=== PATIENT | female | born 1985 | race Caucasian/White ===

== ENCOUNTER 2016-11-15 20:45 | Emergency (ER) | payer OTHER ==
[~2016-11-15] VITALS: Ht 160 cm; Wt 87.0 kg
[~2016-11-15 20:45] MED LIST: FERR1POW4 MC; PREN1TAB49 PO; [UNRECOGNIZED DRUG - CODE] PO
[2016-11-15 21:19] VITALS: Ht 160 cm; Wt 87.0 kg
[2016-11-15] MEDS ORDERED: ONDANSETRON 4 MG INJ IV STA (22:09)
[2016-11-15] MEDS ORDERED: morphine 4 MG/ML VIAL IV STA (22:09)
[2016-11-15] MEDS ORDERED: SOD CHLORIDE 0.9% 1,000 ML IV STA (22:09)
--- NOTE | 2016-11-15 22:21 | ERD ---
ER Documentation Chief Complaint Date/Time DATE: 11/15/16 TIME: 22:20 Chief Complaint Left lower quadrant abdominal pain started today HPI 31-year-old female presents here in emergency department for complaints of left lower quadrant abdominal pain started today. Patient describes the pain as sharp pain, 9/10 scale, is accompanied with dysuria. Patient also has been having hematuria. Patient denies any fever or chills. Patient denies any nausea vomiting. Patient denies any diarrhea or constipation. Patient denies any sick contacts. Patient did not take any medications for pain. ROS All systems reviewed and are negative except as per history of present illness. Medications Home Meds Active Scripts Ciprofloxacin Hcl* (Ciprofloxacin Hcl*) 500 Mg Tablet, 500 MG PO BID for 10 Days , TAB Prov:JUN MCKAY BIOLOGICAL AIDE 11/16/16 Tamsulosin Hcl* (Flomax*) 0.4 Mg Cap.er.24h, 0.4 MG PO QPM, #30 CAP Prov:JUN MCKAY NP 11/16/16 Phenazopyridine Hcl* (Pyridium*) 200 Mg Tab, 200 MG PO TID Y for URINARY PAIN, # 6 TAB Prov:JUN MCKAY BIOLOGICAL AIDE 11/16/16 Hydrocodone/Acetaminophen ([place] 10-325 Tablet) 1 Each Tablet, 1 TAB PO Q6H for SEVERE PAIN LEVEL 7-10, #20 TAB Prov:JUN MCKAY BIOLOGICAL AIDE 11/16/16 Reported Medications Ferrous Sulfate (Ferrous Sulfate) 1 Gm Powder, 1 GM MC d 06/26/11 Vit/Fe Fumarate/Fa/Se ( Mtr Tablet) 1 Tab Tablet, 1 TAB PO d 06/26/11 Vits W-Ca,Fe,Fa(<1MG) () 1 Tab Tablet, 1 TAB PO d 06/26/11 Allergies Allergies: Coded Allergies: No Known Allergy (Verified Allergy, 06/26/11) PMhx/Soc Medical and Surgical Hx: pt denies Medical Hx, pt denies Surgical Hx Hx Alcohol Use: No Hx Substance Use: No Hx Tobacco Use: No FmHx Family History: No coronary disease, No diabetes, No other Physical Exam Vitals Vital Signs Date Time Temp Pulse Resp B/P Pulse Ox O2 Delivery O2 Flow Rate FiO2 11/15/16 21:19 98.0 71 20 105/70 100 Physical Exam GENERAL: The patient is well developed and appropriate for usual state of health, in no apparent distress. CHEST: Clear to auscultation bilaterally. There are no rales, wheezes or rhonchi. HEART: Regular rate and rhythm. No murmurs, clicks, rubs or gallops. No S3 or S4. ABDOMEN: Soft, tenderness on palpation on left lower quadrant. Good bowel sounds. No rebound or guarding. No gross peritonitis. No gross organomegaly or masses. No Sousa sign or McBurney point tenderness. BACK: No midline or flank tenderness. EXTREMITIES: Equal pulses bilaterally. There is no peripheral clubbing, cyanosis or edema. No focal swelling or erythema. Full range of motion. Grossly neurovascularly intact. NEURO: Alert and oriented. Cranial nerves 2-12 intact. Motor strength in all 4 extremities with 5/5 strength. Sensation grossly intact. Normal speech and gait. SKIN: There is no apparent rash or petechia. The skin is warm and dry. HEMATOLOGIC AND LYMPHATIC: There is no evidence of excessive bruising or lymphedema. No gross cervical, axillary, or inguinal lymphadenopathy. Result Diagram: 11/15/16219911/15/162199 Results 24 hrs Laboratory Tests Test 11/15/16 22:00 Alanine Aminotransferase (ALT/SGPT) 23IU/L Albumin 4.2g/dl Albumin/Globulin Ratio 1.16 Alkaline Phosphatase 118IU/L Anion Gap 24 Aspartate Amino Transf (AST/SGOT) 19IU/L Basophils # 0.010^3/ul Basophils % 0.1% Blood Morphology Comment Blood Urea Nitrogen 10mg/dl Calcium Level 9.2mg/dl Carbon Dioxide Level 23mmol/L Chloride Level 104mmol/L Creatinine 0.64mg/dl Direct Bilirubin 0.00mg/dl Eosinophils # 0.010^3/ul Eosinophils % 0.1% Globulin 3.60g/dl Glucose Level 140mg/dl Hematocrit 38.9% Hemoglobin 12.8g/dl Indirect Bilirubin 0.0mg/dl Lipase 78U/L Lymphocytes # 1.810^3/ul Lymphocytes % 14.7% Mean Corpuscular Hemoglobin 27.7pg Mean Corpuscular Hemoglobin Concent 32.8g/dl Mean Corpuscular Volume 84.3fl Mean Platelet Volume 10.4fl Monocytes # 0.510^3/ul Monocytes % 4.0% Neutrophils # 10.010^3/ul Neutrophils % 81.1% Nucleated Red Blood Cells # 0.010^3/ul Nucleated Red Blood Cells % 0.0/100WBC Platelet Count 21133^3/UL Potassium Level 3.6mmol/L Red Blood Count 4.6110^6/ul Red Cell Distribution Width 14.7% Sodium Level 147mmol/L Total Bilirubin 0.0mg/dl Total Protein 7.8g/dl Urine Bacteria MANY Urine Bilirubin 1+ Urine Clarity TURBID Urine Color BROWN Urine Glucose NEGATIVE% Urine Hemoglobin 3+ Urine Ictotest NEGATIVE Urine Ketones 3+ Urine Leukocyte Esterase 2+ Urine Microscopic RBC >200/HPF Urine Microscopic WBC 25-50/HPF Urine Nitrite NEGATIVE Urine Specific [place] >=1.030 Urine Squamous Epithelial Cells MODERATE Urine Total Protein 1+ Urine Urobilinogen 1.0 E.U./dL Urine pH 6.0 White Blood Count 12.310^3/ul Current Medications Medications (Trade) Dose Ordered Sig/Alvarado Route PRN Reason Start Time Stop Time Status Last Admin Dose Admin Sodium Chloride (NS) 1,000 ml @ 1,000 mls/hr Q1H STAT IV 11/15/16 22:09 11/15/16 23:08 DC 11/15/16 22:32 Morphine Sulfate (morphine) 4 mg ONCE STAT IV 11/15/16 22:09 11/15/16 22:11 DC 11/15/16 22:33 Ondansetron HCl (Zofran Inj) 4 mg ONCE STAT IV 11/15/16 22:09 11/15/16 22:11 DC 11/15/16 22:32 Hydromorphone HCl (Dilaudid) 1 mg ONCE STAT IV 11/15/16 23:38 11/15/16 23:43 DC 11/15/16 23:44 Hydromorphone HCl 1 mg 1 mg STK-MED ONCE .ROUTE 11/15/16 23:41 11/15/16 23:42 DC Sodium Chloride (NS) 100 ml @ ud STK-MED ONCE .ROUTE 11/15/16 23:44 11/15/16 23:45 DC 11/16/16 00:05 Iohexol (Omnipaque 300mg/ ml) 150 ml STK-MED ONCE .ROUTE 11/15/16 23:44 11/15/16 23:45 DC 11/16/16 00:05 Ketorolac Tromethamine 30 mg 30 mg ONCE STAT IV 11/16/16 00:20 11/16/16 00:37 DC Ceftriaxone Sodium (Rocephin) 50 ml @ 100 mls/hr ONCE ONCE IVPB 11/16/16 00:30 11/16/16 00:59 Phenazopyridine HCl (Pyridium) 200 mg ONCE ONCE PO 11/16/16 00:30 11/16/16 00:37 DC Patient was given medication for pain here in emergency department, after treatment, patient verbalized feeling much better. Patient's pain is improved.Patient was given Zofran here in the emergency department. After treatment, patient was able to tolerate po fluids here in the emergency department without any vomiting. There is no signs and symptoms of dehydration. Normal saline IV bolus was given here in emergency department for rehydration, patient tolerated IV fluids. 2 g IV Rocephin was given here in emergency department, tolerated medication well. PROCEDURE: CT Abdomen and Pelvis with contrast. CLINICAL INDICATION: Flank pain TECHNIQUE: CT scan of the abdomen and pelvis with and without contrast was performed on a multidetector high-resolution CT scanner. The patient was scanned following the uncomplicated intravenous administration of 100 cc of Omnipaque 300. Coronal and sagittal reformatted images were obtained from the axial source images. Images were reviewed on a high-resolution PACS workstation. The total exam CTDI equals 17.8 mGy and the total exam DLP equals 1029 mGy-cm. COMPARISON: None. FINDINGS: CT abdomen: The lung bases are clear. The heart size is normal. No pericardial effusion identified. The liver demonstrates normal size and density. No liver mass identified. The gallbladder is unremarkable. There is no intrahepatic or extrahepatic biliary dilatation. The spleen is normal in size. No focal splenic abnormality identified. Surgical karey the proximal stomach suggest previous gastric bypass. The pancreas is unremarkable. The adrenal glands appear normal. There is normal excretion of contrast from the right kidney. There is delayed excretion of contrast from left kidney. There is mild left hydronephrosis and mild left hydroureter. There is 5 mm calculus in the distal left ureter at the UVJ. No other calculi identified. No evidence of renal mass. The aorta is of normal caliber. No adenopathy identified. The bowel and mesentery are unremarkable. CT pelvis: Low-density ring-like structure is seen adjacent to the cervix, likely nuva ring. The pelvic organs are otherwise normal. The pelvic sidewalls and inguinal regions are clear. The sigmoid colon and rectum are unremarkable. No adenopathy, free fluid or inflammatory change identified. The osseous structures are unremarkable. No osteolytic or osteoblastic lesion is detected. IMPRESSION: 1. 5 mm partially obstructing calculus in the left ureter at the ureterovesicular junction. 2. Mild left hydronephrosis and hydroureter. 3. Surgical change of the stomach, likely previous gastric bypass. RPTAT: HLDM .Sascha Desir MD, MD Date Time Electronically viewed and signed by .Sascha Desir MD, MD on 11/16/2016 00: 11 .M/ CC: JUN MCKAY BIOLOGICAL AIDE Procedures/MDM Medical Decision Making: Patient's left flank area into left groin area most likely consistent with renal stone that is currently passing, it is causing partial obstruction with mild hydronephrosis and hydroureter, can be also accompanied urinary tract infection. At this time, I discussed this case with my attending physician, Dr. Recio, also reviewed patient's CT scan results, he recommended having patient be treated with IV Rocephin 2 g here in emergency department, to send home with oral antibiotics, ciprofloxacin with an 8 hour follow-up for reevaluation of symptoms. At this time, patient does not have any symptoms of sepsis. Patient has mild leukocytosis, but no bandemia. Patient does not have any fever. Patient does not have any tachycardia. Vital signs are stable. Patient's hemodynamics stable and appears well. Patient's pain is controlled. There is low suspicion for abdominal emergencies at this time. Patients abdominal exam is normal at this time. Patients radiology exam does not show any abdominal emergencies at this time. There is low suspicion for appendicitis, cholecystitis, abdominal aortic aneurysms or peritonitis at this time. There is low suspicion for sepsis. Patient appears well and is hemodynamically stable. Disposition: Home. Condition: Stable Prescription ciprofloxacin, Hickman, tamsulosin, Pyridium Instructions: Patient is advised to take medications as prescribed. Patient is advised to rest, increase fluid intake and do good perineal hygiene, see urology specialist for further evaluation and symptoms, also return in 8 hours for reevaluation of symptoms. Patient is advised that if symptoms are worse, severe abdominal pain, uncontrolled vomiting, high fever, severe flank pain, worst signs and symptoms, to return to the emergency department immediately. Otherwise, patient can follow up here in emergency department in 8 hours for reevaluation of symptoms. Departure Diagnosis: Primary Impression: Renal colic on left side Additional Impression: UTI (urinary tract infection) Urinary tract infection type: acute cystitis Hematuria presence: without hematuria Qualified Code: N30.00 - Acute cystitis without hematuria Condition: Stable Patient Instructions: Kidney Stone W/ Colic, Understanding Urinary Tract Infections (UTIs) Additional Instructions: Patient is advised to take medications as prescribed. Patient is advised to rest, increase fluid intake and do good perineal hygiene, see urology specialist for further evaluation and symptoms, also return in 8 hours for reevaluation of symptoms. Patient is advised that if symptoms are worse, severe abdominal pain, uncontrolled vomiting, high fever, severe flank pain, worst signs and symptoms, to return to the emergency department immediately. Otherwise, patient can follow up here in emergency department in 8 hours for reevaluation of symptoms. JUN MCKAY NP Nov 15, 2016 22:21
[2016-11-15 22:37] LABS: BASOPHILS % 0.1 % (0.0-2.0); EOSINOPHILS % 0.1 % (0.0-7.0); HEMATOCRIT 38.9 % (37.0-47.0); HEMOGLOBIN 12.8 g/dl (12.0-16.0); LYMPHOCYTES # 1.8 10^3/ul (0.8-2.9); LYMPHOCYTES % 14.7 % (15.0-51.0); MEAN CORPUSCULAR HEMOGLOBIN 27.7 pg (29.0-33.0); MEAN CORPUSCULAR HGB CONC 32.8 g/dl (32.0-37.0); MEAN CORPUSCULAR VOLUME 84.3 fl (82.0-101.0); MEAN PLATELET VOLUME 10.4 fl (7.4-10.4); MONOCYTE # 0.5 10^3/ul (0.3-0.9); NEUTROPHILS % 81.1 % (39.0-77.0); PLATELET COUNT 178 10^3/UL (140-440); RED BLOOD COUNT 4.61 10^6/ul (4.20-5.40); RED CELL DISTRIBUTION WIDTH 14.7 % (11.5-14.5); UNCORRECTED WBC 12.3 10^3/ul (4.8-10.8); WHITE BLOOD COUNT 12.3 10^3/ul (4.8-10.8)
[2016-11-15 22:41] LABS: CONDITION 1; LH ANALYZER COMMENTS 1
[2016-11-15 22:42] LABS: ADD UMIC YES; URINE BILIRUBIN (Dip) 1+ (NEGATIVE); URINE BLOOD (Dip) 3+ (NEGATIVE); URINE COLOR BROWN (YELLOW); URINE GLUCOSE (Dip) NEGATIVE (NEGATIVE); URINE KETONES (Dip) 3+ (NEGATIVE); URINE LEUKOCYTE ESTERASE (Dip) 2+ (NEGATIVE); URINE NITRITE (Dip) NEGATIVE (NEGATIVE); URINE TOTAL PROTEIN (Dip) 1+ (NEGATIVE); URINE UROBILINOGEN (Dip) 1.0 E.U./dL (0.1-1.0)
[2016-11-15 22:43] LABS: ALBUMIN 4.2 g/dl (3.3-4.9)
[2016-11-15 22:44] LABS: POTASSIUM 3.6 mmol/L (3.5-5.1)
[2016-11-15 22:46] LABS: ALBUMIN/GLOBULIN RATIO 1.16; CREATININE 0.64 mg/dl (0.44-1.00); TOTAL PROTEIN 7.8 g/dl (6.1-8.1)
[2016-11-15 22:47] LABS: CALCIUM 9.2 mg/dl (8.4-10.2)
[2016-11-15 23:08] LABS: BACTERIA,URINE MANY; ICTOTEST NEGATIVE (NEGATIVE); SQUAMOUS EPITHELIAL CELL,UR MODERATE; URINE RBCS >200 /HPF (0)
[2016-11-15] MEDS ORDERED: HYDROmorphONE 1 MG/ML SYG IV STA (23:38)
[2016-11-15] MEDS ORDERED: HYDROmorphONE 1 MG/ML SYG ONE (23:41)
[2016-11-15] MEDS ORDERED: SOD CHLORIDE 0.9% 100 ML ONE (23:44)
[2016-11-15] MEDS ORDERED: IOHEXOL 300MG/ML 150 ML BTL ONE (23:44)
--- NOTE | 2016-11-16 00:12 | RADRPT ---
PROCEDURE: CT Abdomen and Pelvis with contrast. CLINICAL INDICATION: Flank pain TECHNIQUE: CT scan of the abdomen and pelvis with and without contrast was performed on a multidet charleen high-resolution CT scanner. The patient was scanned following the uncomplicated intravenous a dministration of 100 cc of Omnipaque 300. Coronal and sagittal reformatted images were obtained fro m the axial source images. Images were reviewed on a high-resolution PACS workstation. The total exa m CTDI equals 17.8 mGy and the total exam DLP equals 1029 mGy-cm. COMPARISON: None. FINDINGS: CT abdomen: The lung bases are clear. The heart size is normal. No pericardial effusion identified. The liver demonstrates normal size and density. No liver mass identified. The gallbladder is unremarkable. There is no intrahepatic or extrahepatic biliary dilatation. The spleen is normal in size. No focal splenic abnormality identified. Surgical karey the proximal stomach suggest previous gastric bypass. The pancreas is unremarkable. The adrenal glands appear normal. There is normal excretion of contrast from the right kidney. There is delayed excretion of contrast from left kidney. There is mild left hydronephrosis and mild left hydroureter. There is 5 mm calculus in the distal left ureter at the UVJ. No other calculi identified. No evidence of renal mass. The aorta is of normal caliber. No adenopathy identified. The bowel and mesentery are unremarkable. CT pelvis: Low-density ring-like structure is seen adjacent to the cervix, likely nuva ring. The pelvic organs are otherwise normal. The pelvic sidewalls and inguinal regions are clear. The sigmoid colon and rectum are unremarkable. No adenopathy, free fluid or inflammatory change identified. The osseous structures are unremarkable. No osteolytic or osteoblastic lesion is detected. IMPRESSION: 1. 5 mm partially obstructing calculus in the left ureter at the ureterovesicular junction. 2. Mild left hydronephrosis and hydroureter. 3. Surgical change of the stomach, likely previous gastric bypass. RPTAT: HLDM .Sascha Desir MD, Date Time Electronically viewed and signed by .Sascha Desir MD, on 11/16/2016 00:11 .M/
[2016-11-16] MEDS ORDERED: KETOROLAC 30 MG INJ IV STA (00:20)
[2016-11-16] MEDS ORDERED: PHENAZOPYRIDINE 100 MG TAB PO ONE (00:30)
[2016-11-16] MEDS ORDERED: CEFTRIAXONE 2 GM/50 ML (PMX) 50 ML IVPB ONE (00:30)
[2016-11-16] MEDS ORDERED: PHEN-538 PO (00:40)
[2016-11-16] MEDS ORDERED: CIPR500T4 PO (00:40)
[2016-11-16] MEDS ORDERED: HYDR-902 PO (00:40)
[2016-11-16] MEDS ORDERED: TAMS-14 PO (00:40)
[2016-11-16 01:32] VITALS: BP 113/72; PULSE 67; RESP 18; TEMP 97.6
== END 2016-11-16 01:32 | disposition home or self-care (01) ==
LOC: FTE 20:45
DX: N20.0 Calculus of kidney (principal); N30.00 Acute cystitis without hematuria
CPT/HCPCS: 36415; 74177; 80053; 81001; 83690; 85025; 96374; 96375; J0696; J1170; J1885; J2270; J2405; J7030; Q9967; Z7502; Z7610; 81003

== ENCOUNTER 2016-11-29 13:30 | Emergency (ER) | payer OTHER ==
[~2016-11-29] VITALS: Wt 85.5 kg
[~2016-11-29 13:30] MED LIST changes: +CIPR500T4 PO; +HYDR-902 PO; +PHEN-538 PO; +TAMS-14 PO
[2016-11-29] MEDS ORDERED: IBUP800T25 PO (15:15)
[2016-11-29] MEDS ORDERED: ACET325T33 PO (15:15)
--- NOTE | 2016-11-29 19:45 | ERD ---
DATE OF SERVICE: HISTORY OF PRESENT ILLNESS: The patient is a 31-year-old female coming in complaining of a sore thr oat for 2 days. The patient states that she has had a dry cough. She took ibuprofen 4 hours prior to evaluation. No runny nose, no vomiting, no abdominal pain, no chest pain, or shortness of breath . PAST MEDICAL HISTORY: Denies medical problems. ALLERGIES TO MEDICATIONS: DENIES. SURGICAL HISTORY: Denies. IMMUNIZATIONS: Up to date on vaccinations. SOCIAL HISTORY: Denies. REVIEW OF SYSTEMS: A 12-point review of systems was done. Refer to HPI for positives, all other sy stems negative. PHYSICAL EXAMINATION: VITAL SIGNS: Temperature is 97.5, pulse 98, blood pressure is 111/64, respiratory 16, O2 saturation 98% on room air. Pain intensity is 7/10. GENERAL: The patient is well-appearing, well-nourished, no acute distress. HEART: Regular rate and rhythm. No murmurs, clicks, rubs, or gallops. No S3 or S4. CHEST: Clear to auscultation bilaterally. There are no rales, wheezes, or rhonchi. HEENT: Atraumatic. Conjunctivae are pink. Pupils equal, round, and reactive to light. There is n o scleral icterus. Tympanic membranes clear bilaterally. Oropharynx clear. No nystagmus or photop hobia. ABDOMEN: Soft, nontender and nondistended. Good bowel sounds. No rebound or guarding. No gross p eritonitis. No gross organomegaly or masses. No Sousa sign or McBurney point tenderness. SKIN: There is no apparent rash or petechiae. The skin is warm and dry. DIAGNOSIS: Upper respiratory infection. MEDICAL DECISION MAKING: I did not feel the patient had a bacterial infection. I have low suspicio n for bacterial HEENT infection, low suspicion for meningitis or sepsis, low suspicion for pneumonia . DISCHARGE: The patient is discharged stable. The patient given prescription for ibuprofen and Tyle nol and told to follow up with primary care within 1 to 2 days for reevaluation. The patient was to ld to follow up with primary care. The patient was told if symptoms progress or worsen to return to the ER. All other questions answered at time of discharge. Discharge summary given at the time of departure. The patient understood and complied with plan. Dictated By: CAM MA PA for PATY BAIN/MUMTAZ Conf#: [id number] DID#: [id number]
== END 2016-11-29 15:47 | disposition home or self-care (01) ==
LOC: FTE 13:30
DX: J06.9 Acute upper respiratory infection, unspecified (principal)
CPT/HCPCS: 99283

== ENCOUNTER 2018-11-28 10:15 | Emergency (ER) | payer OTHER ==
[~2018-11-28] VITALS: Ht 160 cm; Wt 79.3 kg
[~2018-11-28 10:15] MED LIST changes: +ACET325T33 PO; +HYDR-3980 PO; -HYDR-902 PO; +IBUP800T48 PO
[2018-11-28 10:47] VITALS: BP 113/64; PULSE 83; RESP 17; Ht 160 cm; Wt 79.3 kg
[2018-11-28] MEDS ORDERED: CEPH-443 PO (11:38)
--- NOTE | 2018-11-28 11:46 | ERD ---
ER Documentation Chief Complaint Chief Complaint PAINFUL URINATION, PELVIC PAIN HPI 33-year-old female presenting with dysuria times 1 week. Patient has been taking Macrobid as prescribed by her primary doctor however she is continues to have dysuria and urinary frequency. Patient is . Patient is 17 weeks without complication. No vaginal bleeding. No back pain. No fevers. No other medical problems. NKDA. Surgical history denies. Social history denies ROS All systems reviewed and are negative except as per history of present illness. Medications Home Meds Active Scripts Cephalexin* (Keflex*) 500 Mg Capsule, 500 MG PO QID for 7 Days, CAP Prov:HEATHER MA PA-C 11/28/18 Acetaminophen* (Tylenol*) 325 Mg Tablet, 2 TAB PO Q6 PRN for PAIN AND OR ELEVATED TEMP, #20 TAB Prov:HEATHER MA PA-C 11/29/16 Ibuprofen* (Motrin*) 800 Mg Tab, 800 MG PO Q6H PRN for PAIN AND OR ELEVATED TEMP, #30 TAB Prov:HEATHER MA PA-C 11/29/16 Ciprofloxacin Hcl* (Ciprofloxacin Hcl*) 500 Mg Tablet, 500 MG PO BID for 10 Days, TAB Prov:JUN MCKAY NP 11/16/16 Tamsulosin Hcl* (Flomax*) 0.4 Mg Cap.er.24h, 0.4 MG PO QPM, #30 CAP Prov:JUN MCKAY NP 11/16/16 Phenazopyridine Hcl* (Pyridium*) 200 Mg Tab, 200 MG PO TID PRN for URINARY PAIN, #6 TAB Prov:JUN MCKAY NP 11/16/16 Hydrocodone/Acetaminophen ([place] 10-325 Tablet) 1 Each Tablet, 1 TAB PO Q6H for SEVERE PAIN LEVEL 7-10, #20 TAB Prov:JUN MCKAY NP 11/16/16 Reported Medications Ferrous Sulfate (Ferrous Sulfate) 1 Gm Powder, 1 GM MC d 06/26/11 Vit/Fe Fumarate/Fa/Se ( Mtr Tablet) 1 Tab Tablet, 1 TAB PO d 06/26/11 Vits W-Ca,Fe,Fa(<1MG) () 1 Tab Tablet, 1 TAB PO d 06/26/11 Allergies Allergies: Coded Allergies: No Known Allergy (Verified , 11/29/16) PMhx/Soc Medical and Surgical Hx: pt denies Medical Hx, pt denies Surgical Hx History of Surgery: No Anesthesia Reaction: No Hx Neurological Disorder: No Hx Respiratory Disorders: No Hx Cardiac Disorders: No Hx Psychiatric Problems: No Hx Miscellaneous Medical Probl: No Hx Alcohol Use: No Hx Substance Use: No Hx Tobacco Use: No FmHx Family History: No diabetes, No coronary disease, No other Physical Exam Vitals Vital Signs Date Temp Pulse Resp B/P (MAP) Pulse Ox O2 O2 Flow FiO2 Time Delivery Rate 11/28/18 98.0 83 17 113/64 99 10:47 (80) Physical Exam GENERAL: The patient is well-appearing, well-nourished, in no acute distress CHEST: Clear to auscultation bilaterally. There are no rales, wheezes or rhonchi. HEART: Regular rate and rhythm. No murmurs, clicks, rubs or gallops. No S3 or S4. ABDOMEN: Normal active bowel sounds. No distention. No organomegaly. Mild tenderness palpation of the suprapubic region. Results 24 hrs Laboratory Tests Test 11/28/18 11:28 Bedside Urine pH (LAB) 7.0 Bedside Urine Protein (LAB) Negative Bedside Urine Glucose (UA) Negative Bedside Urine Ketones (LAB) Negative Bedside Urine Blood Negative Bedside Urine Nitrite (LAB) Negative Bedside Urine Leukocyte Esterase (L 1+ Procedures/MDM MDM: 33-year-old female presenting with dysuria. Patient has positive findings of urinary tract infection on urinalysis. I have low suspicion for pyelonephritis. Patient be discharged with supportive medications and recommended to take medications for infections. Patient's urine is sent for culture. I have low suspicion for complication. I have low suspicion for pelvic abnormality. A low suspicion for acute abdominal emergency. Patient is discharged stricter precautions and told to follow-up with primary care within 1-2 days for close evaluation. Patient is told symptoms change or worsen to immediately return to the ER. All questions answered at discharge Departure Diagnosis: Primary Impression: Dysuria Condition: Stable Patient Instructions: Dysuria Additional Instructions: FOLLOW UP WITH YOUR PRIMARY CARE PHYSICIAN TOMORROW.Return to this facility if you are not improving as expected. HEATHER MA PA-C Nov 28, 2018 11:46
== END 2018-11-28 12:23 | disposition home or self-care (01) ==
LOC: FTE 10:15
DX: R30.0 Dysuria (principal)
CPT/HCPCS: 81003; 87086; 99283

== ENCOUNTER 2018-12-04 13:20 | Emergency (ER) | payer OTHER ==
[~2018-12-04] VITALS: Ht 167.6 cm; Wt 80.1 kg
[~2018-12-04 13:20] MED LIST changes: +CEPH-443 PO
[2018-12-04 13:24] VITALS: BP 101/50; PULSE 77; RESP 20; Ht 167.6 cm; Wt 80.1 kg
[2018-12-04] MEDS ORDERED: ACETAMINOPHEN 325 MG TAB PO ONE (17:00)
[2018-12-04] MEDS ORDERED: ACET500C5 PO (17:16)
[2018-12-04] MEDS ORDERED: AMOX500C2 PO (17:16)
--- NOTE | 2018-12-04 17:19 | ERD ---
ER Documentation Chief Complaint Chief Complaint Complains of of urine problems x 1 week no relief from current medication HPI 33-year-old female presents with suprapubic pain for the last week. She is treated with unspecified antibiotics by her OB and then recently completed a course of Keflex. Urine culture from recent visit here was lactobacillus. She denies any fevers, vomiting, bleeding or sensation of swelling or external genital lesions. ROS All systems reviewed and are negative except as per history of present illness. Medications Home Meds Active Scripts Amoxicillin* (Amoxicillin*) 500 Mg Cap, 500 MG PO TID for 7 Days, CAP Prov:MEMO FELICIANO MD 12/04/18 Acetaminophen* (Tylophen*) 500 Mg Capsule, 1 CAP PO Q6H PRN for PAIN AND OR ELEVATED TEMP, #20 CAP Prov:MEMO FELICIANO MD 12/04/18 Cephalexin* (Keflex*) 500 Mg Capsule, 500 MG PO QID for 7 Days, CAP Prov:HEATHER MA PA-C 11/28/18 Acetaminophen* (Tylenol*) 325 Mg Tablet, 2 TAB PO Q6 PRN for PAIN AND OR ELEVATED TEMP, #20 TAB Prov:HEATHER MA PA-C 11/29/16 Ibuprofen* (Motrin*) 800 Mg Tab, 800 MG PO Q6H PRN for PAIN AND OR ELEVATED TEMP, #30 TAB Prov:HEATHER MA PA-C 11/29/16 Ciprofloxacin Hcl* (Ciprofloxacin Hcl*) 500 Mg Tablet, 500 MG PO BID for 10 Days, TAB Prov:JUN MCKAY NP 11/16/16 Tamsulosin Hcl* (Flomax*) 0.4 Mg Cap.er.24h, 0.4 MG PO QPM, #30 CAP Prov:JUN MCKAY NP 11/16/16 Phenazopyridine Hcl* (Pyridium*) 200 Mg Tab, 200 MG PO TID PRN for URINARY PAIN, #6 TAB Prov:JUN MCKAY NP 11/16/16 Hydrocodone/Acetaminophen ([place] 10-325 Tablet) 1 Each Tablet, 1 TAB PO Q6H for SEVERE PAIN LEVEL 7-10, #20 TAB Prov:JUN MCKAY NP 11/16/16 Reported Medications Ferrous Sulfate (Ferrous Sulfate) 1 Gm Powder, 1 GM MC d 06/26/11 Vit/Fe Fumarate/Fa/Se ( Mtr Tablet) 1 Tab Tablet, 1 TAB PO d 06/26/11 Vits W-Ca,Fe,Fa(<1MG) () 1 Tab Tablet, 1 TAB PO d 06/26/11 Allergies Allergies: Coded Allergies: No Known Allergy (Verified , 11/29/16) PMhx/Soc History of Surgery: No Anesthesia Reaction: No Hx Neurological Disorder: No Hx Respiratory Disorders: No Hx Cardiac Disorders: No Hx Psychiatric Problems: No Hx Miscellaneous Medical Probl: No Hx Alcohol Use: No Hx Substance Use: No Hx Tobacco Use: No FmHx Family History: No diabetes, No coronary disease, No other Physical Exam Vitals Vital Signs Date Temp Pulse Resp B/P (MAP) Pulse Ox O2 O2 Flow FiO2 Time Delivery Rate 12/04/18 97.0 77 20 101/50 100 13:24 (67) Physical Exam Const: No acute distress Head: Atraumatic Eyes: Normal Conjunctiva ENT: Normal External Ears, Nose and Mouth. Neck: Full range of motion. No meningismus. Resp: Clear to auscultation bilaterally Cardio: Regular rate and rhythm, no murmurs Abd: Soft, non tender, non distended. Normal bowel sounds. Pelvic exam with field support rep shows no discharge, swelling, external genital lesions. Skin: No petechiae or rashes Back: No midline or flank tenderness Ext: No cyanosis, or edema Neur: Awake and alert Psych: Normal Mood and Affect Results 24 hrs Laboratory Tests Test 12/04/18 16:07 Urine Color YELLOW Urine Clarity CLOUDY Urine pH 6.0 Urine Specific [place] 1.012 Urine Ketones NEGATIVE mg/dL Urine Nitrite NEGATIVE mg/dL Urine Bilirubin NEGATIVE mg/dL Urine Urobilinogen NEGATIVE mg/dL Urine Leukocyte Esterase 3+ Marci/ul Urine Microscopic RBC 10 /HPF Urine Microscopic WBC > 182 /HPF Urine Squamous Epithelial Cells MODERATE /HPF Urine Bacteria FEW /HPF Urine Hemoglobin NEGATIVE mg/dL Urine Glucose NEGATIVE mg/dL Urine Total Protein NEGATIVE mg/dl Current Medications Medications Dose Sig/[place]var[place] Start Time Status Last (Trade) Ordered Route PRN Stop Time Admin Dose Reason Admin 650 mg ONCE ONCE 12/04/18 DC 12/04/18 Acetaminophen PO 17:00 16:58 (Tylenol 12/04/18 17:01 Tab) Procedures/MDM Pelvic ultrasound shows normal-appearing intrauterine 19-week . Patient presents with pelvic pain possible urinary complaints for the last week. She does have white blood cells and bacteria in urine which was sent for culture again. Will treat with Macrobid while awaiting culture. She may have unspecified pelvic pain of but we will treat given findings on UA.. There is no signs or symptoms of tubo-ovarian abscess, complications of current . Doubt torsion, and no signs of surgical abdomen. The patient was stable with no new complaints during the ER course. Clinically, there is no current evidence to suggest meningitis, sepsis, acute abdomen, pneumonia, stroke, acute coronary syndrome, pulmonary embolism, aortic dissection or any other emergent condition appearing to require further evaluation or hospitalization. Patient counseled regarding my diagnostic impression and care plan. Prior to discharge all questions answered. Pt agrees with treatment plan and understands strict return precautions. Pt is instructed to follow up with primary care provider within 24-48 hours. Precautionary instructions provided including instructions to return to the ER if not improving or for any worsening or changing symptoms or concerns. Departure Diagnosis: Primary Impression: Genitourinary symptoms Condition: Stable Patient Instructions: Urinary Tract Infections in Women Referrals: [facility] (PCP) Additional Instructions: Urine sent for culture. Uncertain of infection related to pain. We will treat again while waiting for culture. Check for fevers, vomiting, bleeding, new or worsening symptoms. MEMO FELICIANO MD Dec 04, 2018 17:19
== END 2018-12-04 17:26 | disposition home or self-care (01) ==
LOC: FTE 13:20
DX: O99.89 Other specified diseases and conditions complicating pregnancy, childbirth and the puerperium (principal); R39.9 Unspecified symptoms and signs involving the genitourinary system; Z3A.19 19 weeks gestation of pregnancy
CPT/HCPCS: 76805; 81001; 87086; Z7502; Z7610

== ENCOUNTER 2019-04-06 18:10 | Inpatient (IN) | payer OTHER ==
[~2019-04-06] VITALS: Ht 154.9 cm; Wt 89.5 kg
[~2019-04-06 18:10] MED LIST changes: +ACET500C5 PO; +AMOX500C2 PO
[2019-04-06 19:12] VITALS: BP 102/71; PULSE 78; RESP 18
[2019-04-06] MEDS ORDERED: FER325 PO (20:10)
[2019-04-06 20:11] VITALS: Ht 154.9 cm; Wt 89.5 kg
--- NOTE | 2019-04-06 21:41 | HP ---
Date/Time of Note Date/Time of Note DATE: 04/06/19 TIME: 21:37 OB - History Hx of Present Free Text/Dictation 34-year-old 3 para 2 at 36 weeks and 6 days of gestation with estimated date of delivery April 28, 2019 She presents from clinic to be evaluated for possible cholestasis of Patient reports of having itching of her hands and her feet in the last 4 days She reports positive movement, denies vaginal bleeding or leaking fluid, denies contractions Estimated Due Date: Apr 28, 2019 : 3 Para: 2 Care: Good Care Past Family/Social History * Past Medical, Surgical, Family and Obstetric Histories reviewed from chart. OB Admission Exam Vital Signs Vital Signs Vital Signs Date Temp Pulse Resp B/P (MAP) Pulse Ox O2 O2 Flow FiO2 Time Delivery Rate 04/06/19 98.7 78 18 102/71 Room Air 19:12 (81) Physical Exam HEENT: WNL Heart: Rhythm Normal Lungs: Clear, Equal Abdomen: WNL Extremities: Normal Reflexes: Normal Heart Rate: 140's Accelerations: Accelerations Present Decelerations: No Decelerations Varibility: Moderate Contractions on Admission: None Last 72 hours Lab Results CBC & BMP 04/06/19 20:26 Liver Function Test 04/06/19 20:26 Alanine Aminotransferase (ALT/SGPT) 134 H Albumin 3.2 L Alkaline Phosphatase 261 H Aspartate Amino Transf (AST/SGOT) 99 H Direct Bilirubin 0.00 Total Protein 6.0 L PROCEDURE: US OB biophysical profile. CLINICAL INDICATION: decreased movements, TECHNIQUE: Multiple sonographic images of the pelvis were obtained. The images were reviewed on a PACS workstation. COMPARISON: No prior studies are available for comparison. FINDINGS: There is a single live intrauterine gestation. Cardiac activity is present with 134 beats per minute. There is a vertex presentation. The placenta is right lateral. There is no evidence of placental abruption. CASSIE = 16.4 cm. Biophysical profile: movement 2/2 tone 2/2. breathing 2/2 CASSIE 2/2 Total 8/8 RPTAT: AA . IMPRESSION: Normal biophysical profile. . .Paxton Lepe MD, MD Date Time Electronically viewed and signed by .Paxton Lepe MD, MD on 04/06/2019 21:22 .S/ CC: TARYN PINEDA MD [id number] PROCEDURE: US OB. CLINICAL INDICATION: Size and dates , abdominal pain TECHNIQUE: Multiple sonographic images of the pelvis and gravid uterus were obtained. The images were reviewed on a PACS workstation. COMPARISON: 04/06/2019 FINDINGS: Gestation: Single live intrauterine gestation. Cardiac activity: 140 beats per minute. Presentation: Vertex. Placenta: Location: Right lateral Appearance: No previa or abruption. Measurements: BPD = 8.8 cm, 35 weeks and 5 days HC = 31.2 cm, 35 weeks and 0 days AC = 34.8 cm, 38 weeks and 5 days FL = 7.4 cm, 38 weeks and 0 days Gestational Age: AUA estimated gestational age: 36 weeks 6 days LMP estimated gestational age: 36 weeks 6 days AUA estimated date of delivery: 04/28/19 The EFW = 3289 g, 77.8%ile based on LMP age. RPTAT: AA IMPRESSION: Single live intrauterine gestation of 36 weeks 6 days by ultrasound criteria. .Paxton Lepe MD, MD Date Time Electronically viewed and signed by .Paxton Lepe MD, MD on 04/06/2019 22:20 .S/ CC: TARYN PINEDA MD [id number] OB Assessment/Plan Other plan: Rule out cholestasis of Patient with elevated liver enzymes; bile acids pending Admit to antepartum Continuous monitoring Steroids for lung maturity Perinatology consult Copies To: CC: NELLA BOWDEN MD ; TARYN PINEDA MD April 06, 2019 21:41
[2019-04-07] MEDS: BETAMET NA PHOS/AC(6 MG/ML) 2 ML INJ SYG IM SCH (00:09)
[2019-04-07] MEDS ORDERED: ACETAMINOPHEN 325 MG TAB PO PRN (01:00)
[2019-04-07] MEDS: DIPHENHYDRAMINE 25 MG CAP PO PRN ×2 (01:17→07:39)
--- NOTE | 2019-04-07 02:53 | TRIAGE ---
OB Triage Datetime Report Generated by CPN: 04/07/2019 02:53 Datetime: 04/07/2019 01:40 Stage of : Antepartum Labor Evaluation Frequency: none Monitor Mode: External Pattern: Normal: <= 5 Contractions in 10 Minutes Resting Tone [place]: Relaxed Heart Rate FHR Baseline Rate: 135 Monitor Mode: External US Variability: Moderate 6-25 bpm Accelerations: 15X15 Decelerations: None Category: Category I Pain Assessment Pain Scale: 0 Pain Goal: 0 Datetime: 04/07/2019 01:17 Stage of : Antepartum Datetime: 04/07/2019 00:26 Stage of : Antepartum Labor Evaluation Frequency: none Monitor Mode: External Pattern: Normal: <= 5 Contractions in 10 Minutes Resting Tone [place]: Relaxed Heart Rate FHR Baseline Rate: 135 Monitor Mode: External US FHR Baseline Changes: No Baseline Change Variability: Moderate 6-25 bpm Accelerations: 15X15 Decelerations: None Pain Assessment Pain Scale: 0 Pain Goal: 0 Datetime: 04/07/2019 00:09 Stage of : Antepartum Datetime: 04/06/2019 23:47 Stage of : Antepartum Maternal Assessment Temperature Route: Oral Labor Evaluation Frequency: none Monitor Mode: External Pattern: Normal: <= 5 Contractions in 10 Minutes Resting Tone [place]: Relaxed Heart Rate FHR Baseline Rate: 135 Monitor Mode: External US FHR Baseline Changes: No Baseline Change Variability: Moderate 6-25 bpm Accelerations: 15X15 Decelerations: None Pain Assessment Pain Scale: 0 Pain Goal: 0 Pain Assessment Comments: No pain noted just itching. Datetime: 04/06/2019 22:12 Monitor Mode: External Monitor Mode: External US Datetime: 04/06/2019 21:24 Vaginal Exam Membrane Status: Intact Datetime: 04/06/2019 19:36 Time of Arrival: 04/06/2019 18:00 EGA: 36.6 Arrived By: Ambulatory Arrived From: Home Chief Complaint: sent from the clinic to rule out cholestasis. pt c/o itching everywhere plus palms and soles of feet for 4 days Movement: Present Contractions: Denies/Absent Rupture of Membranes: Denies Vaginal Bleeding: None Vaginal Discharge: Denies Recent Sexual Intercouse: Denies Abdominal Trauma: Not Applicable Patient Complaints: None Time Provider Notified: 04/06/2019 19:25 Provider Notified: MIRIAM Initial Plan: EFM Datetime: 04/06/2019 19:15 Monitor Mode: External
[2019-04-07] MEDS ORDERED: PRENATAL VITAMIN PO SCH (09:00)
[2019-04-07] MEDS ORDERED: FERROUS SULFATE (EC) 325 MG TAB PO SCH (09:00)
[2019-04-08] MEDS: BETAMET NA PHOS/AC(6 MG/ML) 2 ML INJ SYG IM SCH (00:02)
--- NOTE | 2019-04-08 08:55 | QN ---
Documentation Comment 34-year-old 3 para 2 at 37 weeks and 1 days of gestation with estimated date of delivery April 28, 2019. she has classic findings of cholestasis. she also has elevated AST/ALT. she reports itching on the palm of hands and sole of feet as well as entire body itching. I recommended to proceed with IOL and not waiting for Bile acids. even with normal Bile acid this patient needs to be induced since the labs may be lagging. I explained to patient the risks due to cholestasis out weigh any benefits that may come by prolonging the . patient agreed with IOL NELLA BOWDEN MD April 08, 2019 08:55
[2019-04-08] MEDS ORDERED: LACTATED RINGER'S 1,000 ML IV PRN (09:09)
[2019-04-08] MEDS ORDERED: LACTATED RINGER'S 1,000 ML IV SCH (09:09)
[2019-04-08] MEDS ORDERED: LIDOCAINE 1% (MPF) 30 ML INJ INJ PRN (09:30)
[2019-04-08] MEDS ORDERED: METHYLERGONOVINE 0.2 MG INJ IM PRN (09:30)
[2019-04-08] MEDS ORDERED: MISOPROSTOL 200 MCG TAB PR PRN ×2 (09:30→13:00)
[2019-04-08] MEDS ORDERED: CARBOPROST 250 MCG INJ IM PRN ×2 (09:30→13:00)
[2019-04-08] MEDS ORDERED: OXYTOCIN 30 UNITS/LR 500 ML IV PRN ×2 (09:30→13:00)
[2019-04-08] MEDS ORDERED: IBUPROFEN 600 MG TAB PO PRN (09:30)
[2019-04-08] MEDS ORDERED: OXYTOCIN 30 UNITS/LR 500 ML IV SCH ×2 (09:30)
[2019-04-08] MEDS ORDERED: BUTORPHANOL 2 MG INJ IV PRN (09:30)
[2019-04-08] MEDS ORDERED: FENTAnyl 2MCG/ML-ROPIV 0.2% 100 ML ONE (12:01)
--- NOTE | 2019-04-08 12:39 | PREAC ---
Date/Time of Note Date/Time of Note DATE: 04/08/19 TIME: 12:35 Anesthesia Eval and Record Evaluation Time Pre-Procedure Interview DATE: 04/08/19 TIME: 12:13 Age 34 Sex female NPO: 8 hrs Preoperative diagnosis iup @ 37 wks., , cholestasis of , labor Planned procedure carlos Past Medical History Past Medical History: Includes GI: Other (cholestasis of ) : : (3), Para: (2), Gestational age: (37 wks.), Other (cholestasis) Surgery & Anesthesia Issues No known issue Meds Anticoagulation: No Beta Padmini within 24 hr: No Reason Beta Padmini not given: Pt. not on B-Padmini Reported Medications Ferrous Sulfate* (Ferrous Sulfate*) 325 Mg Tabec, 325 MG PO DAILY, TAB 04/06/19 Vit/Fe Fumarate/Fa/Se ( Mtr Tablet) 1 Tab Tablet, 1 TAB PO d 06/26/11 Discontinued Reported Medications Ferrous Sulfate (Ferrous Sulfate) 1 Gm Powder, 1 GM MC d 06/26/11 Vits W-Ca,Fe,Fa(<1MG) () 1 Tab Tablet, 1 TAB PO d 06/26/11 Discontinued Scripts Amoxicillin* (Amoxicillin*) 500 Mg Cap, 500 MG PO TID for 7 Days, CAP Prov:MEMO FELICIANO MD 12/04/18 Acetaminophen* (Tylophen*) 500 Mg Capsule, 1 CAP PO Q6H PRN for PAIN AND OR ELEVATED TEMP, #20 CAP Prov:MEMO FELICIANO MD 12/04/18 Cephalexin* (Keflex*) 500 Mg Capsule, 500 MG PO QID for 7 Days, CAP Prov:HEATHER MA PA-C 11/28/18 Acetaminophen* (Tylenol*) 325 Mg Tablet, 2 TAB PO Q6 PRN for PAIN AND OR ELEVATED TEMP, #20 TAB Prov:HEATHER MA PA-C 11/29/16 Ibuprofen* (Motrin*) 800 Mg Tab, 800 MG PO Q6H PRN for PAIN AND OR ELEVATED TEMP, #30 TAB Prov:HEATHER MA PA-C 11/29/16 Ciprofloxacin Hcl* (Ciprofloxacin Hcl*) 500 Mg Tablet, 500 MG PO BID for 10 Days, TAB Prov:JUN MCKAY NP 11/16/16 Tamsulosin Hcl* (Flomax*) 0.4 Mg Cap.er.24h, 0.4 MG PO QPM, #30 CAP Prov:JUN MCKAY NP 11/16/16 Phenazopyridine Hcl* (Pyridium*) 200 Mg Tab, 200 MG PO TID PRN for URINARY PAIN, #6 TAB Prov:JUN MCKAY BRICKMASON 11/16/16 Hydrocodone/Acetaminophen ([place] 10-325 Tablet) 1 Each Tablet, 1 TAB PO Q6H for SEVERE PAIN LEVEL 7-10, #20 TAB Prov:JUN MCKAY NP 11/16/16 Current Medications Diphenhydramine HCl (Benadryl) 25 mg HS PRN PO ITCHING Last administered on 04/07/19at 07:39; Admin Dose 25 MG; Start 04/07/19 at 00:30 Lactated Ringer's 1,000 ml @ 125 mls/hr Q8H IV Last administered on 04/08/19at 09:50; Admin Dose 125 MLS/HR; Start 04/08/19 at 09:09 Butorphanol Tartrate (Stadol) 2 mg Q2H PRN IV .PAIN SCALE 6-10; Start 04/08/19 at 09:30 Lidocaine (Xylocaine 1% (Mpf)) 30 ml ONCE PRN INJ .EPISIOTOMY; Start 04/08/19 at 09:30 Oxytocin/Lactated Ringer's 500 ml @ 500 mls/hr ONCE POST IV ; Start 04/08/19 at 09:30 Oxytocin/Lactated Ringer's 500 ml @ 125 mls/hr POST IV ; Start 04/08/19 at 09:30 Ibuprofen (Motrin) 600 mg ONCE PRN PO .PAIN 1-5; Start 04/08/19 at 09:30 Lactated Ringer's 1,000 ml @ 2,000 mls/hr Q30M PRN IV .ANESTHESIA Last administered on 04/08/19at 11:01; Admin Dose 2,000 MLS/HR; Start 04/08/19 at 09:09 Oxytocin/Lactated Ringer's 500 ml @ 0 mls/hr ONCE PRN IV .VAGINAL BLEEDING; Start 04/08/19 at 09:30 Methylergonovine Maleate (Methergine) 0.2 mg ONCE PRN IM .VAGINAL BLEEDING; Start 04/08/19 at 09:30 Carboprost Tromethamine (Hemabate) 250 mcg ONCE PRN IM .VAGINAL BLEEDING; Start 04/08/19 at 09:30 Misoprostol (Cytotec) 1,000 mcg ONCE PRN MD .VAGINAL BLEEDING; Start 04/08/19 at 09:30 Oxytocin/Lactated Ringer's 500 ml @ 0 mls/hr FOR INDUCTION IV Last administered on 04/08/19at 09:49; Admin Dose 1 MLS/HR; Start 04/08/19 at 09:30 Meds reviewed: Yes Allergies Coded Allergies: No Known Allergy (Verified , 04/06/19) Allergies Reviewed: Yes Labs/Studies Labs Reviewed: Reviewed by anesthesiologist Result Diagram: 04/07/1961004/07/19610 test: Positive Studies: ECG (n/a), CXR (n/a) Pre-procedure Exam Last vitals Vital Signs Date Temp Pulse Resp B/P (MAP) Pulse Ox O2 O2 Flow FiO2 Time Delivery Rate 04/06/19 98.7 78 18 102/71 Room Air 19:12 (81) Airway: Adequate mouth opening, Adequate thyromental dist Mallampati: Mallampati II Teeth: Normal Lung: Normal Heart: Normal ASA Physical Status ASA physical status: 2 Emergency: E Planned Anesthetic Neuraxial: Epidural Planned Pain Management Epidural, Local by surgeon Pre-operative Attestations Prior to commencing anesthesia and surgery, the patient was re-evaluated, there was verification of: *The patient's identity *The results of appropriate recent lab work and preoperative vital signs *The above evaluation not changing prior to induction *Anesthetic plan, risk benefits, alternative and complications discussed with patient/family; questions answered; patient/family understands, accepts and wishes to proceed. Optical Glass Inspector used KELLY العلي MD April 08, 2019 12:39
[2019-04-08] MEDS ORDERED: SENNA/DOCUSATE NA (8.6MG/50MG) TAB PO PRN (13:00)
[2019-04-08] MEDS ORDERED: NALOXONE (0.4 MG/ML) INJ IV PRN ×2 (13:00→14:30)
[2019-04-08] MEDS ORDERED: DIPHENHYDRAMINE 50 MG INJ IV PRN (13:00)
[2019-04-08] MEDS ORDERED: DIBUCAINE 1% 30 GM OINT TOP PRN (13:00)
[2019-04-08] MEDS ORDERED: FENTAnyl 2MCG/ML-ROPIV 0.2% 100 ML BAG EPI SCH ×2 (13:00→14:30)
[2019-04-08] MEDS ORDERED: MAGNESIUM HYDROXIDE 30ML CUP PO PRN (13:00)
[2019-04-08] MEDS ORDERED: ONDANSETRON 4 MG TAB PO PRN (13:00)
[2019-04-08] MEDS ORDERED: ONDANSETRON 4 MG INJ IV PRN ×2 (13:00)
[2019-04-08] MEDS ORDERED: WITCH HAZEL/GLYCERIN PAD PR PRN (13:00)
[2019-04-08] MEDS ORDERED: COSYNTROPIN 0.25 MG INJ IM ONE (13:00)
[2019-04-08] MEDS ORDERED: BENZOCAINE 20% 56 ML SPRAY TOP PRN (13:00)
[2019-04-08] MEDS ORDERED: LANOLIN HPA 1 PKT TOP PRN (13:00)
[2019-04-08] MEDS ORDERED: HYDROCODONE/APAP (5/325) TAB PO PRN (13:00)
[2019-04-08] MEDS ORDERED: NA PHOSPHATE/BIPHOS 133 ML ENEMA PR PRN (13:00)
[2019-04-08] MEDS ORDERED: DIPHENHYDRAMINE 25 MG CAP PO PRN (13:00)
--- NOTE | 2019-04-08 13:35 | LDN ---
Date/Time of Note Date/Time of Note DATE: 04/08/19 TIME: 13:32 Delivery Summary IUP at 37.1 weeks with EDC 04/28/2019. s/p of viable female infant. After delivery of the head the rest of the body delivered easily. I did not apply excessive traction. Placenta delivered spontaneously and intact. evaluation of the placenta confirmed intact placenta. Uterus was firm with cervix closed on exam. first degree perineal laceration was repaired with 2-0 Vicryl. Epidural working well. EBL is 300 ml. Episiotomy: No Perineal laceration: 1 Laceration repair: as above Anesthesia type: Epidural Estimated blood loss: 300 Sponge & Needle done & correct: Yes All needle counts correct: Yes Any foreign bodies felt in the: No Delivery Information Sex Sex: female Apgars 1 Minute: 9 5 Minute: 9 Suctioning Nose & mouth suctioned at jordi: No Delee suction performed: No Umbilical Cord Umbilical cord with: 3 Vessels Cord presentations: nuchal cord Nuchal cord present X: 1 Cord Blood was obtained: Yes Mother & Baby Disposition Disposition Mom & Baby to Maternity; Good: Yes NELLA BOWDEN MD April 08, 2019 13:35
[2019-04-08] MEDS: OXYTOCIN 30 UNITS/LR 500 ML IV SCH ×2 (13:51→17:30)
[2019-04-08] MEDS ORDERED: SOD CHLORIDE 0.9% IVPB SCH ×2 (14:00→15:30)
[2019-04-08] MEDS ORDERED: COSYNTROPIN IVPB SCH ×2 (14:00→15:30)
[2019-04-08 16:50] VITALS: BP 112/66; PULSE 73; RESP 18
[2019-04-08] MEDS: IBUPROFEN 600 MG TAB PO SCH ×2 (17:38→23:46)
[2019-04-08] MEDS: LACTATED RINGER'S 1,000 ML IV* SCH (17:40)
[2019-04-08 18:00] VITALS: BP 110/66; PULSE 76; RESP 20
[2019-04-08 20:00] VITALS: BP 105/60; PULSE 83; RESP 18
[2019-04-08] MEDS: SENNA/DOCUSATE NA (8.6MG/50MG) TAB PO SCH (20:39)
[2019-04-08] MEDS: HYDROCODONE/APAP (5/325) TAB PO PRN (22:57)
[2019-04-09] MEDS: LACTATED RINGER'S 1,000 ML IV* SCH ×3 (00:36→12:46)
[2019-04-09 03:53] VITALS: BP 104/68; PULSE 57; RESP 18
--- NOTE | 2019-04-09 04:12 | PAC ---
Date/Time of Note Date/Time of Note DATE: 04/09/19 TIME: 04:12 Post-Anesthesia Notes Post-Anesthesia Note Last documented vital signs Vital Signs Date Temp Pulse Resp B/P (MAP) Pulse Ox O2 O2 Flow FiO2 Time Delivery Rate 04/09/19 98.1 57 18 104/68 Room Air 03:53 (80) Activity: WNL Respiratory function: WNL Cardiovascular function: WNL Mental status: Baseline Pain reasonably controlled: Yes Hydration appropriate: Yes Nausea/Vomiting absent: Yes KELLY العلي MD April 09, 2019 04:12
[2019-04-09] MEDS: HYDROCODONE/APAP (5/325) TAB PO PRN (04:57)
[2019-04-09] MEDS: IBUPROFEN 600 MG TAB PO SCH ×3 (06:00→17:58)
[2019-04-09 08:00] VITALS: BP 109/66; PULSE 78; RESP 18
[2019-04-09] MEDS: SENNA/DOCUSATE NA (8.6MG/50MG) TAB PO SCH ×2 (08:35→21:36)
[2019-04-09 11:50] VITALS: BP 109/66; PULSE 72; RESP 18
--- NOTE | 2019-04-09 14:52 | QN ---
Documentation Comment day #1 Status post Patient stable and afebrile Vital signs stable VS - Last 72 Hours, by Label Date Temp Pulse Resp B/P (MAP) Pulse Ox O2 O2 Flow FiO2 Time Delivery Rate 04/09/19 98.4 72 18 109/66 Room Air 11:50 (80) 04/09/19 98.0 78 18 109/66 Room Air 08:00 (80) 04/09/19 98.1 57 18 104/68 Room Air 03:53 (80) 04/08/19 98.0 83 18 105/60 Room Air 20:00 (75) 04/08/19 98.3 76 20 110/66 Room Air 18:00 (81) 04/08/19 98.2 73 18 112/66 Room Air 16:50 (81) 04/06/19 98.7 78 18 102/71 Room Air 19:12 (81) Hematology - 72 Hrs Test 04/06/19 20:26 04/07/19 06:11 04/09/19 06:24 Hematocrit 32.6 % (37.0-47.0) 33.9 % (37.0-47.0) 28.7 % (37.0-47.0) L L L Hemoglobin 10.5 11.0 9.2 g/dl (12.0-16.0) L g/dl (12.0-16.0) g/dl (12.0-16.0) L L Mean Corpuscular 28.2 pg (29.0-33.0) 28.4 28.3 Hemoglobin L pg (29.0-33.0) L pg (29.0-33.0) L Mean Corpuscular 32.2 32.4 32.1 Hemoglobin Concent g/dl (32.0-37.0) g/dl (32.0-37.0) g/dl (32.0-37.0) Mean Corpuscular 87.4 87.4 88.3 Volume fl (82.0-101.0) fl (82.0-101.0) fl (82.0-101.0) Mean Platelet 13.6 fl (7.4-10.4) 13.6 fl (7.4-10.4) 13.3 fl (7.4-10.4) Volume #H H H Platelet Count 124 108 109 10^3/UL (140-415) 10^3/UL (140-415) 10^3/UL (140-415) L L L Red Blood Count 3.73 3.88 3.25 10^6/ul (4.20-5.40) 10^6/ul (4.20-5.40 10^6/ul (4.20-5.40 L ) L ) L Red Cell 13.5 % (11.5-14.5) 13.6 % (11.5-14.5) 13.9 % (11.5-14.5) Distribution Width White Blood Count 9.3 7.8 15.6 10^3/ul (4.8-10.8) 10^3/ul (4.8-10.8) 10^3/ul (4.8-10.8) # #H Chemistry Test 04/06/19 20:26 04/07/19 06:11 Sodium Level 136 mmol/L (135-144) 138 mmol/L (135-144) Potassium Level 4.0 mmol/L (3.5-5.1) 5.0 mmol/L (3.5-5.1) Chloride Level 108 mmol/L (97-110) 109 mmol/L (97-110) Carbon Dioxide Level 20 mmol/L (21-31) L 23 mmol/L (21-31) Anion Gap 8 (5-13) 6 (5-13) Blood Urea Nitrogen 9 mg/dl (7-20) 9 mg/dl (7-20) Creatinine 0.65 mg/dl (0.44-1.00) 0.67 mg/dl (0.44-1.00) Est Glomerular Filtrat > 60 mL/min (>60) > 60 mL/min (>60) Rate mL/min Glucose Level 77 mg/dl (70-220) 96 mg/dl (70-220) Calcium Level 9.3 mg/dl (8.4-10.2) 9.0 mg/dl (8.4-10.2) Total Bilirubin 0.4 mg/dl (0.2-1.3) 0.4 mg/dl (0.2-1.3) Direct Bilirubin 0.00 mg/dl (0.00-0.20) 0.00 mg/dl (0.00-0.20) Indirect Bilirubin 0.4 mg/dl (0-1.1) 0.4 mg/dl (0-1.1) Aspartate Amino 99 IU/L (15-46) H 103 IU/L (15-46) H Transf (AST/SGOT) Alanine 134 IU/L (13-69) H 138 IU/L (13-69) H Aminotransferase (ALT/SGPT) Alkaline Phosphatase 261 IU/L (42-121) H 291 IU/L (42-121) H Total Protein 6.0 g/dl (6.1-8.1) L 6.5 g/dl (6.1-8.1) Albumin 3.2 g/dl (3.3-4.9) L 3.2 g/dl (3.3-4.9) L Globulin 2.80 g/dl (1.3-3.2) 3.30 g/dl (1.3-3.2) H Albumin/Globulin Ratio 1.14 0.96 Abdomen soft, fundus firm Perineum intact Extremities nontender Assessment and plan Patient stable and doing well Continue with routine care TARYN PINEDA MD April 09, 2019 14:52
[2019-04-09 15:35] VITALS: BP 101/68; PULSE 61; RESP 18
[2019-04-09 20:00] VITALS: BP 120/91; PULSE 70; RESP 18
[2019-04-10] MEDS: IBUPROFEN 600 MG TAB PO SCH ×4 (00:29→18:00)
[2019-04-10 04:00] VITALS: BP 106/69; PULSE 57; RESP 17
[2019-04-10] MEDS ORDERED: VARICELLA VACCINE LIVE/PF 1,350 UNIT/0.5 ML ML SC* ONE (09:00)
[2019-04-10] MEDS ORDERED: DIPHTH/TET/ACEL PERTUSS (ADULT) 0.5 ML VIAL IM* ONE (09:00)
[2019-04-10] MEDS ORDERED: MEASLES,MUMPS,RUBELLA VACCINE INJ SC* ONE (09:00)
[2019-04-10] MEDS: SENNA/DOCUSATE NA (8.6MG/50MG) TAB PO SCH (09:18)
--- NOTE | 2019-04-10 22:40 | DS ---
Date/Time of Note Date/Time of Note DATE: 04/10/19 TIME: 22:39 Obstetrical Discharge Record Final Diagnosis Final Diagnosis: Term delivered Complications Other (Cholestasis of ) Augmentation: Yes Induction: Yes Rupture of Membranes: No Condition on Discharge Physical Assessment Voiding: Yes Bowel Movement: Yes Breast: Soft, non-tender, Filling Fundus: Firm Abdomen and Incision: soft, not tender Calf Tenderness: No Patient Condition: Good NELLA BOWDEN MD April 10, 2019 22:40
--- NOTE | 2019-04-11 18:11 | DELSUM ---
Delivery Summary A-C Datetime Report Generated by CPN: 04/11/2019 18:10 DELIVERY PERSONNEL Lumber Cutter: Mao, Hayley MATERNAL INFORMATION Delivery Anesthesia: Epidural Medications in Delivery: Oxytocin 30 units Delivery QBL (ml): 257 Placenta Cultured: No Maternal Complications: None LABOR SUMMARY EDC: 04/28/2019 00:00 No. Babies in Womb: 1 Attempted: No Labor Anesthesia: Epidural LABOR INFORMATION Reason for Induction: Other Reason for Induction- Other: Cholestasis Oxytocin: Induction Group B Beta Strep: Not Done Antibiotics # of Doses: 0 Steroids Given: None Reason Steroids Not Administered: Not Applicable MEMBRANES Membranes Rupture Method: Artificial Rupture of Membranes: 04/08/2019 10:05 Length of Rupture (hr): 3.27 Amniotic Fluid Color: Clear Amniotic Fluid Amount: Moderate Amniotic Fluid Odor: None STAGES OF LABOR Stage 3 hr: 0 Stage 3 min: 3 VAGINAL DELIVERY Episiotomy: None Laceration Extension: First Degree Laceration Type: Perineal Laceration Repair: Yes Initial Vag Sponge Count: 10 Final Vag Sponge Count: 10 Initial Vag Sharps Count: 1 Final Vag Sharps Count: 2 Sponge Count Correct: Yes; Vaginal Sweep Performed Sharps Count Correct: Yes BABY A INFORMATION Infant Delivery Date/Time: 04/08/2019 13:21 Method of Delivery: Vaginal Born in Route : No : N/A Forceps: N/A Vacuum Extraction: N/A Shoulder Dystocia : No SHOULDER DYSTOCIA BABY A Delivery Date/Time: 04/08/2019 13:21 PRESENTATION/POSITION BABY A Presentation: Cephalic Cephalic Presentation: Vertex Vertex Position: Left Occipital Anterior Breech Presentation: N/A PLACENTA INFORMATION BABY A Placenta Delivery Time : 04/08/2019 13:24 Placenta Method of Delivery: Spontaneous Placenta Status: Delivered SCORES BABY A Heart Rate 1 min: >100 bpm Resp Effort 1 min: Good Cry Reflex Irritability 1 min: Cough/Sneeze/Pulls Away Muscle Tone 1 min: Active Motion Color 1 min: Body Accident, Extremit Blue Resuscitation Effort 1 min: Tactile Stimulation SCORE 1 MIN: 9 Heart Rate 5 min: >100 bpm Resp Effort 5 min: Good Cry Reflex Irritability 5 min: Cough/Sneeze/Pulls Away Muscle Tone 5 min: Active Motion Color 5 min: Body Accident, Extremit Blue Resuscitation Effort 5 min: Tactile Stimulation SCORE 5 MIN: 9 INFANT INFORMATION BABY A Gestational Age at Delivery: 37.1 Gestational Status: Early Term- 37- 38.6 Weeks Outcome : Liveborn Condition : Stable Sex: Female IDENTIFICATION/MEDS BABY A ID Band Number: [id number] ID Band Location: Right Leg; Left Arm Sensor Applied: Yes Sensor Number: [id number] Sensor Location : Cord Clamp Vitamin K Given : Not Given Erythromycin Given: Not Given WEIGHT/LENGTH BABY A Infant Birthweight (gm): 3035 Infant Weight (lb): 6 Infant Weight (oz): 11 Infant Length (in): 19.50 Infant Length (cm): 49.53 CORD INFORMATION BABY A No. Cord Vessels: 3 Nuchal Cord : Around Neck x1, Loose Cord Blood Taken: No Suction: Mouth; Nose ASSESSMENT BABY A Infant Complications: Multiple Variable Decels Physical Findings at Delivery: Molding of the Head; Within Normal Limits Respirations: Appears Normal Shop Service Technician/ALS Called : No Infant Care By: Yasmin Lacey RN Transferred To: Remains with Mother
== END 2019-04-10 17:45 | disposition home or self-care (01) | DRG 805 ==
LOC: OBT 18:10 → L-D 18:11 → OBT 21:17 → L-D 04-07 23:35 → PP1 04-08 16:50
PROVIDERS: ADMIT Specialist; ATTEND Specialist
PROC: 10E0XZZ Delivery of Products of Conception, External Approach (ICD-10-PCS; principal; 2019-04-08)
PROC: 0HQ9XZZ Repair Perineum Skin, External Approach (ICD-10-PCS; 2019-04-08)
DX: O70.0 First degree perineal laceration during delivery (principal); K83.1 Obstruction of bile duct; Z37.0 Single live birth; O26.62 Liver and biliary tract disorders in childbirth; O69.81X0 Labor and delivery complicated by cord around neck, without compression, not applicable or unspecified; Z3A.37 37 weeks gestation of pregnancy
CPT/HCPCS: 62322; 76815; 76818; 80053; 81001; 83789; 85025; 85610; 85730; 86592; 86850; 86900; 86901; 87340; 90716; G0463; J0702; J2590; J3010; J7030; J7120